=== PATIENT | male | born 1945 | race Caucasian/White ===

== ENCOUNTER → 2024-05-04 14:44 | Outpatient (REF) | payer MEDICARE, OTHER, SELFPAY | LOC: HWRAD 14:44 | PROVIDERS: ATTENDING PHYSICIAN Orthopaedic Surgery Hand Surgery; FAMILY PHYSICIAN Family Medicine | DX: S62.111K Displaced fracture of triquetrum [cuneiform] bone, right wrist, subsequent encounter for fracture with nonunion (principal); M25.531 Pain in right wrist | CPT/HCPCS: 73200 ==

== ENCOUNTER → 2024-12-06 11:37 | Outpatient (REF) | payer MEDICARE, OTHER, SELFPAY | LOC: PAVMRI 11:37 | PROVIDERS: ATTENDING PHYSICIAN Family Medicine | DX: R51.9 Headache, unspecified (principal) | CPT/HCPCS: 70553; A9575 ==